=== PATIENT | male | born 2005 | race Caucasian/White ===

== ENCOUNTER 2025-03-17 23:47 | Emergency (ER) | payer SELFPAY ==
[~2025-03-17] VITALS: Ht 152.4 cm; Wt 127.0 kg
[2025-03-18 00:07] VITALS: BP 160/90; TEMP 98.7; O2SAT 98
[2025-03-18] MEDS ORDERED: dexaMETHasone SOD PHOSPHATE 1 ML ONE (00:17)
[2025-03-18] MEDS ORDERED: KETOROLAC TROMETHAMINE INJ 30 MG/ML VIAL ONE (00:17)
[2025-03-18] MEDS: HYDROMORPHONE 1 MG/1 ML DISP.SYRIN IM ONE (00:18)
[2025-03-18] MEDS ORDERED: HYDROMORPHONE 1 MG/1 ML DISP.SYRIN ONE (00:18)
[2025-03-18] MEDS: dexaMETHasone SOD PHOSPHATE 4 MG/ML VIAL IM ONE (00:18)
[2025-03-18] MEDS: KETOROLAC TROMETHAMINE INJ 30 MG/ML VIAL IM ONE (00:19)
[2025-03-18] MEDS ORDERED: IBUP-1957 PO (00:32)
[2025-03-18] MEDS ORDERED: PRED50TA PO (00:32)
[2025-03-18] MEDS ORDERED: HYDR-3972 PO (00:32)
== END 2025-03-18 01:07 | disposition home or self-care (01) ==
LOC: ER 23:53
DX: M54.41 Lumbago with sciatica, right side (principal); Z79.52 Long term (current) use of systemic steroids; Z87.39 Personal history of other diseases of the musculoskeletal system and connective tissue
CPT/HCPCS: 99284; 96372; J1885; J1100; J1171